=== PATIENT | female | born 1985 | race Caucasian/White ===

== ENCOUNTER → 2020-06-22 | Outpatient (CLI) | payer OTHER ==
[~2020-06-22] MED LIST: AMITRIPTYLINE100 MG PO; BOTOX200 UNIT INJ; CLARITIN 10MG T10 MG PO; CLOBETASOL PROP50 ML TOP; CLONAZEPAM1 MG PO; CORTISPORIN-TC10 M1 EARBOTH; ESCITALOPRAM OX20 MG PO; FLEXERIL PO; GLUCOPHAGE 500500 MG PO; HYDROXYZINE HCL25 MG PO; LISINOPRIL-HCT1 EAC1 PO; LYSINE1000 MG PO; MECLIZINE HCL25 MG PO; MOBIC7.5 MG PO; OMEPRAZOLE20 M1 PO; PRILOSEC OTC20 MG PO; REGLAN10 MG PO; TOPAMAX50 MG PO; VITAMIN B-121000 MCG PO; ZITHROMAX250 MG PO
== END ==
LOC: SLEEP 10:23
DX: G47.30 Sleep apnea, unspecified (principal); G47.00 Insomnia, unspecified; R06.83 Snoring
CPT/HCPCS: 95810

== ENCOUNTER → 2020-08-21 | Day surgery (SDC) | payer OTHER | END | disposition home or self-care (01) | LOC: OR 08:18 | PROVIDERS: Internal Medicine Gastroenterology | PROC: 0DB78ZX Excision of Stomach, Pylorus, Via Natural or Artificial Opening Endoscopic, Diagnostic (ICD-10-PCS; principal; 2020-08-21 11:50) | PROC: 0DB68ZX Excision of Stomach, Via Natural or Artificial Opening Endoscopic, Diagnostic (ICD-10-PCS; principal; 2020-08-21 11:50) | DX: K21.9 Gastro-esophageal reflux disease without esophagitis (principal); K31.9 Disease of stomach and duodenum, unspecified; I10 Essential (primary) hypertension; M19.90 Unspecified osteoarthritis, unspecified site; M79.7 Fibromyalgia; G47.00 Insomnia, unspecified; E66.01 Morbid (severe) obesity due to excess calories; G89.29 Other chronic pain; Z88.1 Allergy status to other antibiotic agents; Z88.8 Allergy status to other drugs, medicaments and biological substances; Z91.048 Other nonmedicinal substance allergy status; Z87.891 Personal history of nicotine dependence; Z79.84 Long term (current) use of oral hypoglycemic drugs; Z79.899 Other long term (current) drug therapy; Z68.43 Body mass index [BMI] 50.0-59.9, adult; Z20.822 Contact with and (suspected) exposure to COVID-19 | CPT/HCPCS: 84703; J2704; J7040 ==

== ENCOUNTER → 2020-10-15 | Outpatient (CLI) | payer OTHER | LOC: NM 10-11 12:17 | DX: K31.84 Gastroparesis (principal) | CPT/HCPCS: 78264; A9541 ==

== ENCOUNTER → 2021-06-24 | Outpatient (CLI) | payer OTHER | LOC: KOH-I 09:55 | DX: R10.11 Right upper quadrant pain (principal); K76.0 Fatty (change of) liver, not elsewhere classified | CPT/HCPCS: 76700 ==

== ENCOUNTER → 2021-07-14 | Outpatient (CLI) | payer OTHER | LOC: NM 12:03 | DX: R10.11 Right upper quadrant pain (principal) | CPT/HCPCS: 78226; A9537 ==

== ENCOUNTER → 2021-08-13 | Outpatient (CLI) | payer OTHER | LOC: EMI 16:17 | DX: G43.719 Chronic migraine without aura, intractable, without status migrainosus (principal); H81.399 Other peripheral vertigo, unspecified ear | CPT/HCPCS: 70551 ==